=== PATIENT | male | born 1960 | race Caucasian/White ===

== ENCOUNTER 2017-10-25 06:51 | Day surgery (SDC) | payer OTHER ==
[~2017-10-25] VITALS: Ht 165.1 cm; Wt 67.6 kg
--- NOTE | ~2017-10-25 | OP ---
PATIENT NAME: ELIZABETH GODINEZ MEDICAL RECORD: [id number] :58 LOCATION:D[facility] ADMISSION DATE: SURGEON: NICK RAMIREZ MD DATE OF OPERATION: 10/25/2017 PREOPERATIVE DIAGNOSES: 1. Systemic inflammatory response syndrome. 2. Urinary tract infection in need of IV antibiotics. 3. No acceptable peripheral IV access available. POSTOPERATIVE DIAGNOSES: 1. Systemic inflammatory response syndrome. 2. Urinary tract infection in need of IV antibiotics. 3. No acceptable peripheral IV access available. PROCEDURE: 1. Placement of left infraclavicular PowerPort under fluoroscopic guidance. 2. Immediate surgeon interpretation of the fluoroscopic images. SURGEON: Nick Ramirez MD ALUMNI COORDINATOR: None. BLOOD LOSS: Minimal. ANESTHESIA: General. COMPLICATIONS: None. The risks, possible complications, and alternatives to the procedure were explained to the patient. OPERATIVE COURSE: The patient was conveyed to the operating room electively on 10/25/2017. General anesthesia was induced by the anesthesia staff. The chest and left neck were sterilely prepped and draped. A transverse incision was accomplished inferior to the left clavicle. Sharp dissection was carried down to the pectoralis fascia. A subcutaneous pocket was created in a caudad direction. I then removed some of the adipose tissue from beneath the flap to allow for easier access of the port. I dissected in the deltopectoral groove. An acceptable cephalic vein was identified. Ties were placed on the cephalic vein laterally. A loose tie was placed medially. A small venotomy was accomplished between the ties. Through the venotomy, I advanced the PowerPort catheter. It was advanced to the cavoatrial junction. The PowerPort catheter was shortened. It was attached to the PowerPort. The locking device was firmly engaged. Some additional ties were placed around the cephalic vein medially. I then divided the cephalic vein between the ties. The port was placed in the subcutaneous pocket. It was sutured with 3-point fixation utilizing 3-0 Prolenes. I irrigated in the port pocket. The subcutaneous tissues were closed with interrupted 3-0 Vicryls. The skin was approximated with a running intracuticular 3-0 Vicryl. I then accessed the port. It accessed easily. It flushed easily and aspirated dark, nonpulsatile blood. OPERATIVE REPORT [id number] ELIZABETH GODINEZ We are going to leave the port accessed. It can be used immediately. A sterile dressing was applied. TRANSINT:[id number] Voice Confirmation ID: [id number] DOCUMENT ID: [id number] NICK RAMIREZ MD CC: [id number] DICTATION DATE: 10/25/17953 INSULATION BOARD HEAD SAW OPERATOR: 10/25/17 [address] [place] [id number] [place] [id number]
--- NOTE | ~2017-10-25 | HP ---
PATIENT: ELIZABETH GODINEZ MEDICAL RECORD: [id number] ACCOUNT: [id number] LOCATION:[place] : 58 ADMISSION DATE: 10/25/17 HISTORY AND PHYSICAL EXAMINATION CHIEF COMPLAINT: None. HISTORY OF PRESENT ILLNESS: We have been asked to place a port. I have explained the risks, possible complications and alternatives to port placement. He elects to proceed. I am told that there was attempted PICC line placement; however, due to the patient's extremity contractures, he was unable to extend his upper extremity in order to have a PICC line placed. I specifically discussed with him the risk of bleeding requiring emergency reoperation, infection, great vessel injury as well as pneumothorax. The patient has a urinary tract infection. He has no adequate peripheral IV access and since for this reason, I have been asked to place a port. I am going to try to place it on the left side. If I am unable to then I will place it on the right side. Administrative consent has been given through me. The patient is unable to respond verbally. He is unable to write. He is unable to communicate. 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 TRANSINT:[id number] Voice Confirmation ID: [id number] DOCUMENT ID: [id number] CATY RAMIREZ MD CC: [id number] DICTATION DATE: 10/25/17945 MANAGER TRANSFER: 10/25/17 [address] [facility] [address] [place] [address]
[2017-10-25 07:46] VITALS: BP 125/87; Ht 165.1 cm; Wt 67.6 kg
== END 2017-10-25 12:45 | disposition home or self-care (01) ==
LOC: D.OPS 06:51
DX: N39.0 Urinary tract infection, site not specified (principal); Z01.812 Encounter for preprocedural laboratory examination

== ENCOUNTER 2019-08-21 09:25 | Inpatient (IN) | payer MEDICAID ==
[~2019-08-21] VITALS: Ht 165.1 cm; Wt 69.0 kg
[2019-08-21] MEDS ORDERED: PROVENTIL/2.5 MG/3 M INH ×2 (09:34→09:57)
[2019-08-21] MEDS ORDERED: LOVENOX40 MG/0.4 SC (09:35)
[2019-08-21] MEDS ORDERED: CIPRO500 MG PO ×2 (09:35→09:57)
[2019-08-21] MEDS ORDERED: CYCLOBENZAPRINE10 MG PO ×2 (09:36→09:58)
[2019-08-21] MEDS ORDERED: CHRONULAC30 ML PO (09:36)
[2019-08-21] MEDS ORDERED: METHOCARBAMOL750 MG NG (09:37)
[2019-08-21] MEDS ORDERED: LOVENOX40 MG/0.4 PO (09:58)
[2019-08-21] MEDS ORDERED: METHOCARBAMOL750 MG PO (09:59)
[2019-08-21] MEDS ORDERED: CHRONULAC30 ML PEG (09:59)
[2019-08-21] MEDS ORDERED: REGLAN SOL10 MG/10 M PO (10:00)
[2019-08-21] MEDS ORDERED: MILK OF MAGNESI30 ML PEG (10:01)
[2019-08-21] MEDS ORDERED: COLACE50 MG/5 ML PEG (10:02)
[2019-08-21] MEDS ORDERED: ZOLOFT100 MG PO (10:03)
[2019-08-21] MEDS ORDERED: BACLOFEN20 M1 PO (10:03)
[2019-08-21] MEDS ORDERED: RANITIDINE HCL150 M1 PO (10:03)
[2019-08-21] MEDS ORDERED: ZINC OXIDE 20 %30 GM (10:04)
[2019-08-21] MEDS ORDERED: LOPRESSOR25 MG PEG (10:04)
[2019-08-21 10:57] LABS: BASOPHILS 0.1 % (0-2); EOSINOPHILS 0.1 % (0-7); HEMOGLOBIN 18.5 g/dL (13.5-17.5); IMMATURE GRANULOCYTES 0.5 % (0-5); LYMPHOCYTES 3.6 % (15-50); MCH 31.3 pg (26.0-34.0); MCHC 34.3 g/dL (31.0-37.0); MCV 91.2 fL (80.0-100.0); MEAN PLATELET VOLUME 11.9 fL (7.4-10.4); MONOCYTES 3.9 % (2-11); NEUTROPHILS 91.8 % (40-80); PLATELET COUNT 239 10x3/uL (130-400); RBC 5.92 10x6/uL (4.20-6.10); RDW 14.1 % (11.5-14.5); WBC 16.6 10x3/uL (4.8-10.8)
[2019-08-21 10:58] LABS: CALC OSMOLALITY 281 mosm/kg (275-300); CALCIUM 9.1 mg/dL (8.5-10.1); CARBON DIOXIDE 18.8 mmol/L (21.0-32.0); CHLORIDE - SERUM 102 mmol/L (98-107); CREATININE - SERUM 1.2 mg/dL (0.6-1.3); GLUCOSE 130 mg/dL (74-106); POTASSIUM - SERUM 4.6 mmol/L (3.5-5.1); SODIUM 138 mmol/L (136-145); UREA NITROGEN 24 mg/dL (7-18); eGFR NON AFRICAN AMERICAN 66 mL/min (90-120)
[2019-08-21 11:00] LABS: APTT 29.7 SECONDS (22.8-39.4); INR 1.04 (0.85-1.17); PROTIME 13.1 SECONDS (11.6-15.0)
[2019-08-21 11:14] LABS: ALBUMIN 3.8 g/dL (3.4-5.0); ALKALINE PHOSPHATASE 141 U/L (46-116); ALT (SGPT) 39 U/L (10-68); CKMB 1.1 U/L (0.0-3.6); CREATINE KINASE 92 UL (21-232); PRO BNP 282 pg/mL (0-125); PROTEIN - SERUM 7.8 g/dL (6.4-8.2); TROPONIN-I < 0.017 ng/mL (0.000-0.060)
--- NOTE | 2019-08-21 12:29 | NUR ---
PT HAS 2 CORRECTIONAL OFFICERS FROM [facility] AT BEDSIDE
[2019-08-21 13:00] VITALS: BP 99/67
--- NOTE | 2019-08-21 13:40 | NUR ---
PT ARRIVES TO ROOM VIA STRETCHER. PT WITH EYES OPEN AND RESPONDS SLOWLY WITH NODS. REDDENED AREA TO BIALTERAL BUTTOCK NON BLANCHABLE WITH SKIN TEAR TO RIGHT CHEEK. BILATERAL HEELS WITH REDDENED AREA AND BOGGY. LEFT GREAT TOE WITH SCABS. GENERALIZED DRY/SCALY SKIN. BILATERAL ELBOWS WITH REDDENED AREAS OVER ANETTE PROMINENCE THAT ARE BLANCHABLE. CHRONIC CATHETER IN PLACE. PEG TUBE IN PLACE. BS HYPOACTIVE X 4. DISTENDED. PT NODS HEAD WHEN QUESTIONED ABOUT TENDERNESS UPON PALPATION. UNABLE TO ASSESS IF PT IS ABLE TO PASS GAS. GUARD IS AT BEDSIDE. VSS. SEE FLOW SHEET. ALL FALL PRECUATIONS ARE IN PLACE. BED IS IN THE LOWEST POSITION. CALL LIGHT AND BEDSIDE TABLE ARE WITHIN REACH. SIDE RAILS X 2 WILL CONT TO MONITOR.
[2019-08-21 14:00] VITALS: BP 110/76; BMI 25.3
--- NOTE | 2019-08-21 14:28 | NUR ---
Pt admitted to [facility] today. He has extremely dry and scaly skin over his entire body. 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 He has a PEG tube, a chronic olmedo cath and is incontinent of bowels. Bilateral buttocks are red and nonblanchable (stage 1 pressure injuries), right buttock has a small skin tear. Bilateral heels are boggy and nonblanchable (stage 1 pressure injuries). Left great toe has scabbed areas. Both elbows are red, but keven. Recommended using zinc paste on buttocks and perineal area. Turn/reposition q 2 hours while in bed (using wedges for support). Keep heels floated off the mattress for pressure relief. Wound care will continue to monitor.
--- NOTE | 2019-08-21 15:57 | NUR ---
CRITICAL LAB RESTULT FOR LACTIC ACID RECD. DERIK CHRISTENSEN [employer] ON FLOOR AND NOTIFIED. CRITICAL LAB FORM FILLED OUT AND PLACED IN PT CHART.
[2019-08-21 16:38] VITALS: BP 110/75
--- NOTE | 2019-08-21 16:40 | NUR ---
PLACE PT IN DROPLET PRECAUTION AWAITING FLU TEST RESULT. IF FLU TEST NEGATIVE MAY CHANGE ISOLATION TO CONTACT PRECAUTIONS DUE TO PT HX.
[2019-08-21 20:35] VITALS: BP 88/65
[2019-08-22] VITALS (7 sets, daily range): BP systolic 97–137; BP diastolic 65–85; Ht 165.1 cm; Wt 69.0 kg
--- NOTE | 2019-08-22 01:21 | NUR ---
PATIENT RESTING IN BED RESPRATIONS EVEN AND UNLABORED CALL LIGHT IN REACH SUSANA AT BEDSIDE. IV TO LEFT HAND WITH NS AT 100ML/HR. PEG TUB IN PLACE AND PATEN CHECKED BY [facility] MEDS VIA PEG TUB AFTER CALL TO TRACK ANNOUNCER. TRACK ANNOUNCER GAVE ORDER TO GIVE MEDS VIA PEG TUB WITH 30 ML FLUSHE BEFOR AND AFTER MEDS. TOLLARATED WELL.
[2019-08-22 07:09] LABS: ANION GAP 11.6 mmol/L (8-16); CALCIUM 8.6 mg/dL (8.5-10.1); CREATININE - SERUM 1.1 mg/dL (0.6-1.3); HEMATOCRIT 43.9 % (42.0-54.0); HEMOGLOBIN 14.5 g/dL (13.5-17.5); MCH 30.5 pg (26.0-34.0); MCV 92.4 fL (80.0-100.0); MEAN PLATELET VOLUME 11.6 fL (7.4-10.4); PLATELET COUNT 190 10x3/uL (130-400); POTASSIUM - SERUM 4.3 mmol/L (3.5-5.1); RBC 4.75 10x6/uL (4.20-6.10); RDW 14.3 % (11.5-14.5); WBC 21.2 10x3/uL (4.8-10.8)
--- NOTE | 2019-08-22 07:17 | NUR ---
PT IS RESTING IN BED WITH EYES OPEN. RESPIRATIONS ARE EVEN AND UNLABORED. PT WITH BUE CONTRACTURES AND BLE WEAKNESS. GENERALIZED DRY SCALY SKIN NOTED. REDDENED AREA TO BILATERAL BUTTOCK WITH SKIN TEAR TO RIGHT CHEEK. REDDENED AREA TO BILATER HEELS AND ARE BOGGY. SCABS NOTED TO RIGHT GREAT TOE. REDDENED AREA TO BILATERAL ELBOWS. SCABS NOTED TO RIGHT SIDE OF HEAD. PT IS NOT ABLE TO COMMUNICATE VERBALLY AND CAN NOD AT TIMES WHEN ASKED QUESTIONS. PT REPOSITIONED FROM SIDE TO BACK. BILATERAL HEELS BRIDGED WITH WEDGE USED SUPPORT. GUARD IS AT BEDSIDE. FALL PRECAUSTIONS ARE IN PLACE. BED IS IN THE LOWEST POSITION. CALL LIGHT AND BEDSIDE TABLE ARE WITHIN REACH. SIDE RAILS X 2. CONTACT ISOLATION PRECAUTIONS IN PLACE. WILL CONT TO MONITOR.
[2019-08-22 07:20] LABS: CARBON DIOXIDE 25.7 mmol/L (21.0-32.0)
[2019-08-22 08:27] LABS: APPEARANCE CLEAR (CLEAR); COLOR YELLOW (YELLOW)
[2019-08-22 08:28] LABS: AMORPHOUS SEDIMENT <1+ /lpf (NONE SEEN); BACTERIA FEW /hpf (NEGATIVE); BILIRUBIN NEGATIVE (NEGATIVE); EPITHELIAL CELLS 0-5 /hpf (0-5); GLUCOSE NEGATIVE (NEGATIVE); KETONE NEGATIVE (NEGATIVE); MUCUS <1+ /lpf (NONE SEEN); NITRITE NEGATIVE (NEGATIVE); PROTEIN TRACE mg/dL (NEGATIVE); RED CELLS - URINE RARE /hpf (0-5); UROBILINOGEN NORMAL (NORMAL); WHITE CELLS - URINE OCC /hpf (NEGATIVE)
[2019-08-22 09:51] LABS: EOSINOPHILS 3 % (0-7); LYMPHOCYTES 10 % (15-50); MONOCYTES 6 % (2-11); NEUTROPHILS 69 % (40-80); PLATELET ESTIMATE NORMAL; ROULEAUX OCC
[2019-08-22 09:54] LABS: ANISOCYTOSIS OCC; PLATELET MORPHOLOGY PLT CLUMPS PRESENT; SMUDGE CELLS OCC
--- NOTE | 2019-08-22 21:00 | NUR ---
ALERT IN BED, ALERT, NON-VERBAL. NODS AND SHAKES HEAD APPROPRIATELY WHEN ASKED QUESTIONS AND FOLLOWS COMMANDS. GERALIZED APPEARANCE OF SKIN IS RED AND PEELING. PT DENIES PAIN. AUSCULTATED PEG FOR PLACEMENT. KANGAROO PUMP SET UP AND CONNECTED TO PT WITH FEED SET AT 30/HR PER ORDER. GUARD AT BEDSIDE WILL CONTINUE TO MONITOR. DENIES NEEDS AT THIS TIME.
[2019-08-23 05:54] VITALS: BP 126/82
[2019-08-23 06:07] LABS: BASOPHILS 0.1 % (0-2); EOSINOPHILS 0.2 % (0-7); HEMATOCRIT 39.7 % (42.0-54.0); HEMOGLOBIN 12.8 g/dL (13.5-17.5); IMMATURE GRANULOCYTES 0.3 % (0-5); LYMPHOCYTES 6.5 % (15-50); MCH 30.3 pg (26.0-34.0); MCHC 32.2 g/dL (31.0-37.0); MCV 94.1 fL (80.0-100.0); MEAN PLATELET VOLUME 11.6 fL (7.4-10.4); MONOCYTES 6.7 % (2-11); NEUTROPHILS 86.2 % (40-80); PLATELET COUNT 180 10x3/uL (130-400); RBC 4.22 10x6/uL (4.20-6.10); RDW 14.6 % (11.5-14.5)
[2019-08-23 06:13] LABS: CALC OSMOLALITY 277 mosm/kg (275-300); CALCIUM 8.4 mg/dL (8.5-10.1); CARBON DIOXIDE 20.9 mmol/L (21.0-32.0); CHLORIDE - SERUM 108 mmol/L (98-107); CREATININE - SERUM 0.8 mg/dL (0.6-1.3); GLUCOSE 124 mg/dL (74-106); POTASSIUM - SERUM 3.9 mmol/L (3.5-5.1); SODIUM 139 mmol/L (136-145); UREA NITROGEN 11 mg/dL (7-18); WBC 15.3 10x3/uL (4.8-10.8); eGFR NON AFRICAN AMERICAN > 90 mL/min (90-120)
--- NOTE | 2019-08-23 06:34 | NUR ---
I have reviewed this patient and I concur with the Shift Assessment completed by the Licensed Practical Nurse today this shift.
--- NOTE | 2019-08-23 08:45 | NUR ---
PT RESTING IN BED WITH GUARD AT BEDSIDE. RESP EVEN AND UNLABORED. GENERALIZED FLUSHING WITH SCALY SKIN NOTED. O2 @ 4L NC IN PLACE. IV TO LEFT HAND WITH NS @ 100ML/HR INFUSING VIA PUMP. SITE WITHOUT REDNESS OR EDEMA. F/C IN PLACE AND DRAINING. DENIES PAIN AT THIS TIME. PEG INTACT TO LEFT UPPER QUAD WITH JEVITY 1.5 @ 50ML/HR INFUSING VIA PUMP. NO RESIDUAL, HOB ELEVATED @ 30 DEGREES. DENIES FURTHER NEEDS AT THIS TIME. CL WITHIN REACH. ENCOURAGED TO CALL WITH NEEDS. CONTINUE POC
[2019-08-23 09:47] VITALS: BP 132/81
[2019-08-23 13:36] VITALS: BP 131/77
--- NOTE | 2019-08-23 14:16 | MORECARE ---
CASE MANAGEMENT DISCHARGE SUMMARY PATIENT: ELIZABETH GODINEZ UNIT: [id number] ADM DATE: 08/21/19 AGE: 59 : 58 SEX: M ROOM/BED: D.2238 AUTHOR: MARAH IVAN PHYSICIAN: REFERRING PHYSICIAN: YEVGENIY NOLASCO MD DATE OF SERVICE: 08/23/19 Discharge Plan Patient Name: ELIZABETH GODINEZ [facility] [facility] 1960 Planned Disposition: Court\Law Enforcement Anticipated Discharge Date: Discharge Date: Expected LOS: Initial Reviewer: [email or web address] Initial Review Date: 08/23/2019 Generated: 08/23/19 3:16 pm Comments DCP- Discharge Planning Updated by [email or web address]: Vikki Alvarado on 08/23/19 1:[address] Patient Name: ELIZABETH GODINEZ Admission Status: ER Accout number: [id number] Admission Date: 08-21-2019 : 1960 Admission Diagnosis: Attending: YEVGENIY NOLASCO Current LOS: 2 Anticipated DC Date: Planned Disposition: Court\Law Enforcement Primary Insurance: MEDICAID ALF PENDING Discharge Planning Comments: Patient is a resident of the [facility] in [facility] at bedside. At discharge will return to [facility], transportation to be arranged by [facility]. CM will continue to follow and assist with discharge planning/needs. Bias Cutter: Vikki Alvarado DCP- Discharge Planning Updated by [email or web address]: Marbella Reyes on 08/21/19 1:[address] ADO. Hx: Dementia. Patient Name: ELIZABETH GODINEZ Page [phone] at 1416 All edits/amendments must be made on the electronic document DICTATION DATE: 08/23/191415 PEACE OFFICER: SHYANN 08/23/191415 RPT#: [id number] DC DATE: STATUS: ADM IN [facility] [address] [place] [address] END OF REPORT
--- NOTE | 2019-08-23 17:38 | NUR ---
PT ASSISTED WITH REPOSITIONING IN BED. GUARD REMAINS AT BEDSIDE. SHAKLE REMAINS IN PLACE TO RIGHT ANKLE. TEMP AT THIS TIME 101.9. TYLENOL ADMINISTERED AT THIS TIME. WILL REASSESS.
[2019-08-23 17:54] VITALS: BP 149/65
--- NOTE | 2019-08-23 18:46 | NUR ---
TEMP REASSESSED AT THIS TIME. TEMP 99.5
--- NOTE | 2019-08-23 20:15 | NUR ---
LYING QUETILY WITH NO DISTRESS NOTED. O2 @ 2L PER NC ON RESP UNALBORED. ENCOUGAGED TO COUGH AND DEEP BREATH.NICHOLAS PATENT AND DRAINING DONG URINE. IV TO LEFT HAND INTACT WITHOUT REDNESS OR EDEMA NOTED.GLUCERNA 1.5 INFUSING TO PEG @ 50 CC/HR. TOLERATING WELL. TURNED AND POSITIONED FOR COMFORT. CL IN REACH. TITO AT BEDSIDE
[2019-08-23 20:46] VITALS: BP 128/83
[2019-08-24 00:19] VITALS: BP 136/92
--- NOTE | 2019-08-24 03:20 | NUR ---
I have reviewed this patient and I concur with the Shift Assessment completed by the Licensed Practical Nurse today this shift.
[2019-08-24 04:54] VITALS: BP 142/81
[2019-08-24 05:49] LABS: BASOPHILS 0.1 % (0-2); EOSINOPHILS 0.4 % (0-7); HEMOGLOBIN 13.1 g/dL (13.5-17.5); IMMATURE GRANULOCYTES 0.3 % (0-5); LYMPHOCYTES 10.7 % (15-50); MCH 30.8 pg (26.0-34.0); MCHC 33.6 g/dL (31.0-37.0); MEAN PLATELET VOLUME 10.9 fL (7.4-10.4); MONOCYTES 6.7 % (2-11); NEUTROPHILS 81.8 % (40-80); PLATELET COUNT 175 10x3/uL (130-400); RBC 4.25 10x6/uL (4.20-6.10); RDW 14.3 % (11.5-14.5)
[2019-08-24 06:04] LABS: CALC OSMOLALITY 284 mosm/kg (275-300); CALCIUM 8.4 mg/dL (8.5-10.1); CHLORIDE - SERUM 108 mmol/L (98-107); CREATININE - SERUM 0.7 mg/dL (0.6-1.3); GLUCOSE 119 mg/dL (74-106); MCV 91.8 fL (80.0-100.0); POTASSIUM - SERUM 3.7 mmol/L (3.5-5.1); SODIUM 143 mmol/L (136-145); UREA NITROGEN 9 mg/dL (7-18); WBC 11.4 10x3/uL (4.8-10.8); eGFR NON AFRICAN AMERICAN > 90 mL/min (90-120)
[2019-08-24 08:21] VITALS: BP 132/76
[2019-08-24 12:47] VITALS: BP 123/78
[2019-08-24 17:32] VITALS: BP 120/76
[2019-08-24 20:22] VITALS: BP 127/74
--- NOTE | 2019-08-24 21:34 | NUR ---
RESTING QUEITLY WITH NO DISTRESS NOTED. RESP EVEN AND UANBLORED. NO DISTRESS NOTED. O2 @ 2L PER NC ON. RESP UNALBORED. IV TO LFA WITHOUT REDNESS NOTED. NICHOLAS PATENT AND DRAINING DARK DONG URINE. TURNED AND POSITIONED FOR COMFORT. CL IN REACH. GAURD AT BEDSIDE
--- NOTE | 2019-08-24 23:38 | NUR ---
I have reviewed this patient and I concur with the Shift Assessment completed by the Licensed Practical Nurse today this shift.
[2019-08-25 00:03] VITALS: BP 115/75
[2019-08-25 04:39] VITALS: BP 149/86
[2019-08-25 06:55] LABS: BASOPHILS 0.3 % (0-2); EOSINOPHILS 3.3 % (0-7); HEMATOCRIT 40.2 % (42.0-54.0); HEMOGLOBIN 13.3 g/dL (13.5-17.5); LYMPHOCYTES 12.1 % (15-50); MCH 30.4 pg (26.0-34.0); MCHC 33.1 g/dL (31.0-37.0); MEAN PLATELET VOLUME 10.9 fL (7.4-10.4); MONOCYTES 6.1 % (2-11); NEUTROPHILS 77.2 % (40-80); RBC 4.37 10x6/uL (4.20-6.10); RDW 14.3 % (11.5-14.5); WBC 11.6 10x3/uL (4.8-10.8)
[2019-08-25 07:12] LABS: PLATELET COUNT 217 10x3/uL (130-400)
[2019-08-25 07:34] LABS: CALC OSMOLALITY 282 mosm/kg (275-300); CALCIUM 8.1 mg/dL (8.5-10.1); CARBON DIOXIDE 24.9 mmol/L (21.0-32.0); CHLORIDE - SERUM 108 mmol/L (98-107); CREATININE - SERUM 0.6 mg/dL (0.6-1.3); GLUCOSE 106 mg/dL (74-106); POTASSIUM - SERUM 4.1 mmol/L (3.5-5.1); SODIUM 142 mmol/L (136-145); eGFR NON AFRICAN AMERICAN > 90 mL/min (90-120)
[2019-08-25 07:35] LABS: UREA NITROGEN 12 mg/dL (7-18)
--- NOTE | 2019-08-25 08:07 | NUR ---
RESTING IN BED, NO DISTRESS NOTED, IV INFUSING, JEVITY INFUSING PER PEG TUBE, CONT TO MONITOR RESP STATUS, O2 PER NC AT 3L
[2019-08-25 08:49] VITALS: BP 143/75
[2019-08-25 13:43] VITALS: BP 142/84
[2019-08-25 16:16] VITALS: BP 141/89
[2019-08-25 20:00] VITALS: BP 140/92
--- NOTE | 2019-08-25 20:00 | NUR ---
AROUSED TO VOICE, DENIES PAIN OR NEEDS AT THIS TIME, SEE SHIFT ASSESSMENT, CALL LIGHT IN REACH, GUARD AT BEDSIDE
[2019-08-26 04:00] VITALS: BP 132/92
[2019-08-26 08:01] VITALS: BP 141/82
[2019-08-26 08:50] LABS: BASOPHILS 0.2 % (0-2); EOSINOPHILS 2.8 % (0-7); HEMATOCRIT 37.6 % (42.0-54.0); HEMOGLOBIN 12.7 g/dL (13.5-17.5); IMMATURE GRANULOCYTES 1.5 % (0-5); LYMPHOCYTES 11.2 % (15-50); MCH 30.4 pg (26.0-34.0); MCHC 33.8 g/dL (31.0-37.0); MEAN PLATELET VOLUME 10.3 fL (7.4-10.4); MONOCYTES 7.9 % (2-11); NEUTROPHILS 76.4 % (40-80); PLATELET COUNT 212 10x3/uL (130-400); RBC 4.18 10x6/uL (4.20-6.10); RDW 13.9 % (11.5-14.5); WBC 9.3 10x3/uL (4.8-10.8)
[2019-08-26 09:10] LABS: CALC OSMOLALITY 278 mosm/kg (275-300); CALCIUM 8.4 mg/dL (8.5-10.1); CARBON DIOXIDE 25.7 mmol/L (21.0-32.0); CHLORIDE - SERUM 105 mmol/L (98-107); CREATININE - SERUM 0.5 mg/dL (0.6-1.3); GLUCOSE 120 mg/dL (74-106); POTASSIUM - SERUM 3.9 mmol/L (3.5-5.1); SODIUM 140 mmol/L (136-145); UREA NITROGEN 9 mg/dL (7-18); eGFR NON AFRICAN AMERICAN > 90 mL/min (90-120)
[2019-08-26 12:43] VITALS: BP 102/79
--- NOTE | 2019-08-26 13:57 | NUR ---
Nutrition follow-up: NPO Jevity 1.5 aubrey infusing @ 50 ml/hr with 25 ml H2O flush q hour Labs reviewed Wt: 152# Pt tolerating TF at goal RDN following.
[2019-08-26 15:51] VITALS: BP 114/59
--- NOTE | 2019-08-26 19:36 | NUR ---
LYING IN BED WITH EYES CLOSED, RESTING QUIETLY. O2 AT 4L VIA NC. IV TO LEFT HAND WITH NS AT 50 INFUSING VIA PUMP. PEG TO LUQ IS PATENT TO AUSCULTATION AND FLUSH. SITE IS CLEAN AND DRY. SKIN IS VERY DRY WITH SOME FLAKING NOTED, NORMAL TO PT. GUARD AT BEDSIDE. WILL NOTE ANY CHANGE.
[2019-08-26 20:00] VITALS: BP 127/85
--- NOTE | 2019-08-27 03:03 | NUR ---
I have reviewed this patient and I concur with the Shift Assessment completed by the Licensed Practical Nurse today this shift.
[2019-08-27 04:00] VITALS: BP 136/90
[2019-08-27 04:37] LABS: BASOPHILS 0.3 % (0-2); EOSINOPHILS 4.7 % (0-7); HEMATOCRIT 37.9 % (42.0-54.0); HEMOGLOBIN 12.5 g/dL (13.5-17.5); IMMATURE GRANULOCYTES 2.6 % (0-5); MCH 29.8 pg (26.0-34.0); MCV 90.5 fL (80.0-100.0); MEAN PLATELET VOLUME 10.8 fL (7.4-10.4); MONOCYTES 10.3 % (2-11); NEUTROPHILS 64.1 % (40-80); PLATELET COUNT 214 10x3/uL (130-400); RBC 4.19 10x6/uL (4.20-6.10); RDW 13.9 % (11.5-14.5)
[2019-08-27 04:43] LABS: WBC 6.1 10x3/uL (4.8-10.8)
[2019-08-27 04:59] LABS: ALBUMIN 2.8 g/dL (3.4-5.0); ALKALINE PHOSPHATASE 89 U/L (46-116); ALT (SGPT) 15 U/L (10-68); BILIRUBIN - TOTAL 0.32 mg/dL (0.2-1.3); CALC OSMOLALITY 282 mosm/kg (275-300); CALCIUM 8.4 mg/dL (8.5-10.1); CARBON DIOXIDE 26.3 mmol/L (21.0-32.0); CHLORIDE - SERUM 105 mmol/L (98-107); CREATININE - SERUM 0.5 mg/dL (0.6-1.3); GLUCOSE 133 mg/dL (74-106); POTASSIUM - SERUM 3.5 mmol/L (3.5-5.1); PROTEIN - SERUM 6.2 g/dL (6.4-8.2); SODIUM 142 mmol/L (136-145); UREA NITROGEN 8 mg/dL (7-18); eGFR NON AFRICAN AMERICAN > 90 mL/min (90-120)
--- NOTE | 2019-08-27 08:40 | NUR ---
PT RESTING IN BED WITH HOB ELEVATED 30 DEGREES. RESP EVEN AND UNLABORED. O2 @ 4L NC IN PLACE. IV TO LEFT HAND WITH NS @ 50ML/HR INFUSING VIA PUMP. SITE WITHOUT REDNESS OR EDEMA. PEG INTACT TO LEFT UPPER QUAD WITH JEVITY 1.5 INFUSING VIA PUMP AT 50ML/HR. PT RAMIRO WELL NO RESIDUAL AT THIS TIME. F/C PATENT TO GRAVITY. PT DENIES PAIN AT THIS TIME. DENIES FURTHER NEEDS. CL WITHIN REACH. ENCOURAGED TO CALL WITH NEEDS. GUARD AT BEDSIDE. CONTINUE POC
[2019-08-27 08:45] VITALS: BP 111/59; BP 129/72
[2019-08-27 13:07] VITALS: BP 114/69
--- NOTE | 2019-08-27 13:29 | MORECARE ---
CASE MANAGEMENT DISCHARGE SUMMARY PATIENT: ELIZABETH GODINEZ UNIT: [id number] ADM DATE: 08/21/19 AGE: 59 : 58 SEX: M ROOM/BED: D.2238 AUTHOR: MARAH IVAN PHYSICIAN: REFERRING PHYSICIAN: YEVGENIY NOLASCO MD DATE OF SERVICE: 08/27/19 Discharge Plan Patient Name: ELIZABETH GODINEZ Facility: [facility]:[place] : 1960 Planned Disposition: Court\Law Enforcement Anticipated Discharge Date: Discharge Date: Expected LOS: Initial Reviewer: [email or web address] Initial Review Date: 08/23/2019 Generated: 08/27/19 2:29 pm DCP- Discharge Planning Updated by [email or web address]: Vikki Alvarado on 08/23/19 1:[address] Patient Name: ELIZABETH GODINEZ Admission Status: ER Accout number: [id number] Admission Date: 08-21-2019 : 1960 Admission Diagnosis: Attending: YEVGENIY NOLASCO Current LOS: 2 Anticipated DC Date: Planned Disposition: Court\Law Enforcement Primary Insurance: MEDICAID FPC PENDING Discharge Planning Comments: Patient is a resident of the [facility] in [facility] at bedside. At discharge will return to [facility], transportation to be arranged by [facility]. CM will continue to follow and assist with discharge planning/needs. Bank Worker: Vikki Alvarado DCP- Discharge Planning Updated by [id number]: Marbella Reyes on 08/21/19 1:[address] ADO. Hx: Dementia. External Providers External Provider: [facility] Next Contact Date: Service Request Date: Service Type: Resolution: Reviewer: Comments: Last DP export: 08/23/19 1:16 Patient Name: ELIZABETH GODINEZ Page 98118 at 1329 All edits/amendments must be made on the electronic document DICTATION DATE: 08/27/19 1329 BAG LOADER MACHINE OPERATOR: SHYANN 08/27/19 1329 RPT#: [id number] DC DATE: STATUS: ADM IN [address] [address] END OF REPORT
--- NOTE | 2019-08-27 14:22 | MORECARE ---
CASE MANAGEMENT DISCHARGE SUMMARY PATIENT: ELIZABETH GODINEZ UNIT: [id number] ADM DATE: 08/21/19 AGE: 59 : 58 SEX: M ROOM/BED: D.2238 AUTHOR: MARAH IVAN PHYSICIAN: REFERRING PHYSICIAN: YEVGENIY NOLASCO MD DATE OF SERVICE: 08/27/19 Discharge Plan Patient Name: ELIZABETH GODINEZ Facility: [facility]:[place] : 1960 Planned Disposition: Court\Law Enforcement Anticipated Discharge Date: Discharge Date: Expected LOS: Initial Reviewer: [email or web address] Initial Review Date: 08/23/2019 Generated: 08/27/19 3:21 pm Comments DCP- Discharge Planning Updated by [email or web address]: Rafaela Garcia on 08/27/19 1:[address] WHEN PATIENT IS DISCHARGED THE [facility] WILL ARRANGE TRANSPORTATION DCP- Discharge Planning Updated by [id number]: Vikki Alvarado on 08/23/19 1:[address] Patient Name: ELIZABETH GODINEZ Admission Status: ER Accout number: [id number] Admission Date: 08-21-2019 : 1960 Admission Diagnosis: Attending: YEVGENIY NOLASCO Current LOS: 2 Anticipated DC Date: Planned Disposition: Court\Law Enforcement Primary Insurance: MEDICAID NURSING HOME PENDING Discharge Planning Comments: Patient is a resident of the [facility] in [place], [facility] at bedside. At discharge will return to [facility], transportation to be arranged by [facility]. CM will continue to follow and assist with discharge planning/needs. Bead Stringer: Vikki Alvarado DCP- Discharge Planning Updated by [email or web address]: Marbella Reyes on 08/21/19 1:[address] ADO. Hx: Dementia. Last DP export: 08/27/19 12:29 Patient Name: ELIZABETH GODINEZ Page [phone] at 1422 All edits/amendments must be made on the electronic document DICTATION DATE: 08/27/191420 CLINICAL TEAM LEAD: SHYANN 08/27/19 142 RPT#: [id number] DC DATE: STATUS: ADM IN [place] [address] [place] [address] END OF REPORT
[2019-08-27 16:45] VITALS: BP 122/77
--- NOTE | 2019-08-27 20:30 | NUR ---
ALERT IN ROOM, MOSTLY NON VERBAL, BUT ANSWERS YES/NO QUESTIONS APPROPRIATELY. GUARD AT BEDSIDE. NO S/SX OF DISTRESS. DENIES NEEDS AT THIS TIME, WILL CONTINUE TO MONITOR.
[2019-08-27 21:25] VITALS: BP 136/90
--- NOTE | 2019-08-28 01:31 | NUR ---
I have reviewed this patient and I concur with the Shift Assessment completed by the Licensed Practical Nurse today this shift.
[2019-08-28 01:58] VITALS: BP 138/90
[2019-08-28 07:34] LABS: BASOPHILS 0.4 % (0-2); EOSINOPHILS 4.4 % (0-7); HEMATOCRIT 39.2 % (42.0-54.0); HEMOGLOBIN 12.9 g/dL (13.5-17.5); IMMATURE GRANULOCYTES 3.6 % (0-5); LYMPHOCYTES 20.4 % (15-50); MCHC 32.9 g/dL (31.0-37.0); MCV 91.2 fL (80.0-100.0); MEAN PLATELET VOLUME 10.4 fL (7.4-10.4); MONOCYTES 9.3 % (2-11); NEUTROPHILS 61.9 % (40-80); PLATELET COUNT 246 10x3/uL (130-400); RDW 14.1 % (11.5-14.5); WBC 6.8 10x3/uL (4.8-10.8)
--- NOTE | 2019-08-28 07:36 | NUR ---
RESTING IN BED, GUARD IN ROOM, IV INFUSING, NICHOLAS TO GRAVITY, JEVITY INFUSING, O2 PER NC, CONT TO MONITOR AND TURN PT
[2019-08-28 07:56] LABS: ALBUMIN 2.9 g/dL (3.4-5.0); ALKALINE PHOSPHATASE 92 U/L (46-116); BILIRUBIN - TOTAL 0.24 mg/dL (0.2-1.3); CALCIUM 8.6 mg/dL (8.5-10.1); CARBON DIOXIDE 25.2 mmol/L (21.0-32.0); CHLORIDE - SERUM 105 mmol/L (98-107); CREATININE - SERUM 0.6 mg/dL (0.6-1.3); GLUCOSE 128 mg/dL (74-106); PROTEIN - SERUM 6.4 g/dL (6.4-8.2); SODIUM 140 mmol/L (136-145); eGFR NON AFRICAN AMERICAN > 90 mL/min (90-120)
[2019-08-28 07:57] LABS: ALT (SGPT) 19 U/L (10-68); CALC OSMOLALITY 280 mosm/kg (275-300); POTASSIUM - SERUM 4.1 mmol/L (3.5-5.1); UREA NITROGEN 12 mg/dL (7-18)
[2019-08-28 08:47] VITALS: BP 130/89
[2019-08-28 11:37] VITALS: BP 130/68
[2019-08-28 17:29] VITALS: BP 125/82
[2019-08-29] VITALS: BP 128/76
[2019-08-29 07:01] LABS: ALBUMIN 2.9 g/dL (3.4-5.0); ALKALINE PHOSPHATASE 96 U/L (46-116); ALT (SGPT) 20 U/L (10-68); BILIRUBIN - TOTAL 0.27 mg/dL (0.2-1.3); CALC OSMOLALITY 280 mosm/kg (275-300); CALCIUM 8.5 mg/dL (8.5-10.1); CARBON DIOXIDE 25.5 mmol/L (21.0-32.0); CHLORIDE - SERUM 106 mmol/L (98-107); CREATININE - SERUM 0.7 mg/dL (0.6-1.3); GLUCOSE 125 mg/dL (74-106); POTASSIUM - SERUM 4.1 mmol/L (3.5-5.1); PROTEIN - SERUM 6.5 g/dL (6.4-8.2); SODIUM 141 mmol/L (136-145); UREA NITROGEN 11 mg/dL (7-18); eGFR NON AFRICAN AMERICAN > 90 mL/min (90-120)
--- NOTE | 2019-08-29 07:10 | NUR ---
PT RESTING IN BED. NO SIGNS OF DISTRESS. IV TO RIGHT HAND PATENT NO REDNESS OR TENDERNESS. ON 4L NC. ON TELEMETRY 78 SR. PEG TUBE PATENT NO REDNESS OR KINKS. GAURD AT BEDSIDE. DENIES ANY FURTHER NEED AT THIS TIME. CALL LIGHT IN REACH. BED LOW POSITION.
[2019-08-29 07:28] LABS: BASOPHILS 0.4 % (0-2); EOSINOPHILS 4.4 % (0-7); HEMATOCRIT 38.5 % (42.0-54.0); HEMOGLOBIN 12.8 g/dL (13.5-17.5); IMMATURE GRANULOCYTES 3.1 % (0-5); LYMPHOCYTES 21.5 % (15-50); MCH 30.2 pg (26.0-34.0); MCHC 33.2 g/dL (31.0-37.0); MCV 90.8 fL (80.0-100.0); MONOCYTES 7.9 % (2-11); NEUTROPHILS 62.7 % (40-80); PLATELET COUNT 283 10x3/uL (130-400); RBC 4.24 10x6/uL (4.20-6.10); RDW 13.7 % (11.5-14.5); WBC 6.8 10x3/uL (4.8-10.8)
[2019-08-29 08:49] VITALS: BP 145/81
--- NOTE | 2019-08-29 09:25 | NUR ---
Nutrition follow-up: PEG tube with Jevity 1.5 aubrey infusing @ 50 ml/hr with 25 ml H2O flush Q hour Labs reviewed Wt: 152# from 08/22; please get new wt Pt tolerating TF RDN following.
--- NOTE | 2019-08-29 11:35 | NUR ---
I have reviewed this patient and I concur with the Shift Assessment completed by the Licensed Practical Nurse today this shift.
--- NOTE | 2019-08-29 13:29 | MORECARE ---
CASE MANAGEMENT DISCHARGE SUMMARY PATIENT: ELIZABETH GODINEZ UNIT: [id number] ADM DATE: 08/21/19 AGE: 59 : 58 SEX: M ROOM/BED: D.2238 AUTHOR: MARAH IVAN PHYSICIAN: REFERRING PHYSICIAN: YEVGENIY NOLASCO MD DATE OF SERVICE: 08/29/19 Discharge Plan Patient Name: ELIZABETH GODINEZ Facility: [facility]:[place] : 1960 Planned Disposition: Court\Law Enforcement Anticipated Discharge Date: Discharge Date: Expected LOS: Initial Reviewer: [email or web address] Initial Review Date: 08/23/2019 Generated: 08/29/19 2:28 pm Comments DCP- Discharge Planning Updated by [email or web address]: Rafaela Garcia on 08/29/19 12:[address] PATIENT TO DC BACK TO [facility] TODAY. [facility] WILL SET UP TRANSPORTATION FAXED CLINICALS TO [facility], DR NOLASCO TO DO P2P DCP- Discharge Planning Updated by [email or web address]: Rafaela Garcia on 08/27/19 1:[address] WHEN PATIENT IS DISCHARGED THE [facility] WILL ARRANGE TRANSPORTATION DCP- Discharge Planning Updated by [id number]: Vikki Alvarado on 08/23/19 1:[address] Patient Name: ELIZABETH GODINEZ Admission Status: ER Accout number: [id number] Admission Date: 08-21-2019 : 1960 Admission Diagnosis: Attending: YEVGENIY NOLASCO Current LOS: 2 Anticipated DC Date: Planned Disposition: Court\Law Enforcement Primary Insurance: MEDICAID ALF PENDING Discharge Planning Comments: Patient is a resident of the [facility] in [place], [facility] at bedside. At discharge will return to [facility], transportation to be arranged by [facility]. CM will continue to follow and assist with discharge planning/needs. Telemarketer Supervisor: Vikki Alvarado DCP- Discharge Planning Updated by [email or web address]: Marbella Reyes on 08/21/19 1:[address] ADO. Hx: Dementia. Last DP export: 08/27/19 1:22 Patient Name: ELIZABETH GODINEZ Page [phone] at 1329 All edits/amendments must be made on the electronic document DICTATION DATE: 08/29/191327 PATHOLOGY SUPERVISOR: SHYANN 08/29/191327 RPT#: [id number] [place] DATE: STATUS: ADM IN [facility] [address] [place] [address] END OF REPORT
[2019-08-29] MEDS ORDERED: Vancomycin 1.25 GM/N IV (13:33)
[2019-08-29] MEDS ORDERED: FLORAJEN3 CAPS460 MG PO (13:33)
[2019-08-29] MEDS ORDERED: ZINC OXIDE 20 %30 GM TOPICAL (13:33)
[2019-08-29 16:48] VITALS: BP 119/89
[2019-08-29 19:30] VITALS: BP 139/91
[2019-08-30 00:30] VITALS: BP 124/86
[2019-08-30 05:00] VITALS: BP 130/80
[2019-08-30 06:14] LABS: BASOPHILS 0.5 % (0-2); EOSINOPHILS 3.9 % (0-7); HEMATOCRIT 39.3 % (42.0-54.0); HEMOGLOBIN 12.9 g/dL (13.5-17.5); IMMATURE GRANULOCYTES 2.7 % (0-5); MCH 29.9 pg (26.0-34.0); MCHC 32.8 g/dL (31.0-37.0); MEAN PLATELET VOLUME 10.3 fL (7.4-10.4); MONOCYTES 6.2 % (2-11); NEUTROPHILS 66.7 % (40-80); PLATELET COUNT 277 10x3/uL (130-400); RBC 4.32 10x6/uL (4.20-6.10); RDW 13.7 % (11.5-14.5); WBC 5.8 10x3/uL (4.8-10.8)
[2019-08-30 06:53] LABS: ALBUMIN 2.9 g/dL (3.4-5.0); ALKALINE PHOSPHATASE 94 U/L (46-116); ALT (SGPT) 25 U/L (10-68); BILIRUBIN - TOTAL 0.27 mg/dL (0.2-1.3); CALC OSMOLALITY 281 mosm/kg (275-300); CALCIUM 8.2 mg/dL (8.5-10.1); CHLORIDE - SERUM 104 mmol/L (98-107); CREATININE - SERUM 0.6 mg/dL (0.6-1.3); GLUCOSE 130 mg/dL (74-106); POTASSIUM - SERUM 3.8 mmol/L (3.5-5.1); PROTEIN - SERUM 6.1 g/dL (6.4-8.2); SODIUM 141 mmol/L (136-145); UREA NITROGEN 11 mg/dL (7-18); eGFR NON AFRICAN AMERICAN > 90 mL/min (90-120)
[2019-08-30 08:51] VITALS: BP 129/84
--- NOTE | 2019-08-30 14:33 | NUR ---
PT DISCHARGED VIA [facility]IFENET RETURNING BACK TO [facility] F[facility]ILITY. PIV REMOVED, PICC LINE REMAINS FOR ANTIBIOTICS. NICHOLAS EMPTIED BUT LEFT DUE TO CHRONIC NICHOLAS ON ADMISSION. TUBE FEEDING STOPPED AND PEG TUBE FLUSHED FOR PATENCY. TELEMETRY REMOVED.
== END 2019-08-30 14:35 | DRG 871 ==
LOC: D.ER 09:25 → D.MS 12:31
PROVIDERS: Emergency Medicine; ADMIT Internal Medicine Nephrology; ATTEND Internal Medicine Nephrology
PROC: 05HY33Z Insertion of Infusion Device into Upper Vein, Percutaneous Approach (ICD-10-PCS; principal; 2019-08-29)
DX: A41.02 Sepsis due to Methicillin resistant Staphylococcus aureus (principal); J96.21 Acute and chronic respiratory failure with hypoxia; J15.212 Pneumonia due to Methicillin resistant Staphylococcus aureus; Z99.81 Dependence on supplemental oxygen; I25.10 Atherosclerotic heart disease of native coronary artery without angina pectoris; R13.10 Dysphagia, unspecified; I10 Essential (primary) hypertension; K21.9 Gastro-esophageal reflux disease without esophagitis